=== PATIENT | female | born 1990 | race Two or more races ===

== ENCOUNTER 2019-10-24 10:10 | Emergency (ER) | payer SELFPAY ==
[~2019-10-24] VITALS: Ht 162.6 cm; Wt 123.8 kg
[2019-10-24 10:17] VITALS: Ht 162.6 cm; Wt 123.8 kg
[2019-10-24 11:50] VITALS: BP 160/82
== END 2019-10-24 11:50 | disposition home or self-care (01) ==
LOC: ED 10:10
DX: S62.201A Unspecified fracture of first metacarpal bone, right hand, initial encounter for closed fracture (principal); W18.30XA Fall on same level, unspecified, initial encounter; Y93.89 Activity, other specified; Y92.89 Other specified places as the place of occurrence of the external cause; Y99.8 Other external cause status
CPT/HCPCS: Q0092

== ENCOUNTER 2020-07-12 17:45 | Emergency (ER) | payer OTHER ==
[~2020-07-12] VITALS: Ht 162.6 cm; Wt 123.8 kg
[2020-07-12 18:00] VITALS: Ht 162.6 cm; Wt 123.8 kg
[2020-07-12] MEDS ORDERED: TYLOPHEN500 MG PO (19:20)
[2020-07-12 19:37] VITALS: BP 131/82
== END 2020-07-12 19:37 | disposition home or self-care (01) ==
LOC: ED 17:45
DX: H21.02 Hyphema, left eye (principal)